=== PATIENT | male | born 1955 | race Caucasian/White ===

== ENCOUNTER 2019-03-20 19:11 | Emergency (ER) | payer SELFPAY ==
--- NOTE | 2019-03-20 19:29 | ERPHSYRPT ---
- History of Present Illness Time Seen by Provider: 03/20/19 19:20 Source: patient, police Exam Limitations: intoxication Patient Subjective Stated Complaint: pt needs cleared for detention. etoh 0.28 Triage Nursing Assessment: pt alert and oriented. answers questions approp. pt arrive with law enforcement. ambulatoryw ith steady gait noted. respirations nonlabored . skin warm and dry. speech clear. Physician History: 63 y/o white male brought into ED for medical clearance for detention. pt denies cp, soa or abd pain. pt walking normally for him. pt conversing without difficult. pts last etoh drink was at 1800 tonight. pt states he only consumed 3 etoh drinks and no other illicit drugs or rx meds. Timing/Duration: today Severity: mild Associated Symptoms: denies symptoms Allergies/Adverse Reactions: No Known Drug Allergies Allergy (Verified 03/20/19 19:23) Home Medications: No Home Meds [No Home Meds] 1 ea UD 02/08/15 [History] Hx Tetanus, Diphtheria Vaccination/Date Given: Yes Hx Influenza Vaccination/Date Given: Yes Hx Pneumococcal Vaccination/Date Given: No Immunizations Up to Date: Yes - Review of Systems Constitutional: No Symptoms Eyes: No Symptoms Ears, Nose, & Throat: No Symptoms Respiratory: No Symptoms Cardiac: No Symptoms Abdominal/Gastrointestinal: No Symptoms Genitourinary Symptoms: No Symptoms Musculoskeletal: No Symptoms Skin: No Symptoms Neurological: Other (intoxication) Psychological: No Symptoms Endocrine: No Symptoms Hematologic/Lymphatic: No Symptoms Immunological/Allergic: No Symptoms All Other Systems: Reviewed and Negative - Past Medical History Pertinent Past Medical History: No Neurological History: No Pertinent History ENT History: No Pertinent History Cardiac History: No Pertinent History Respiratory History: No Pertinent History Endocrine Medical History: No Pertinent History Musculoskeletal History: No Pertinent History GI Medical History: No Pertinent History History: No Pertinent History Psycho-Social History: No Pertinent History Male Reproductive Disorders: No Pertinent History Other Medical History: denies medical hx - Past Surgical History Past Surgical History: No Neuro Surgical History: No Pertinent History Cardiac: No Pertinent History Respiratory: No Pertinent History Gastrointestinal: No Pertinent History Genitourinary: No Pertinent History Musculoskeletal: No Pertinent History Male Surgical History: No Pertinent History - Social History Smoking Status: Current every day smoker How long have you smoked: 40 yrs Exposure to second hand smoke: No Drug Use: none Patient Lives Alone: No - Nursing Vital Signs Nursing Vital Signs: Initial Vital Signs Temperature 97.9 F 03/20/19 19:13 Pulse Rate 114 H 03/20/19 19:13 Respiratory Rate 18 03/20/19 19:13 Blood Pressure 161/102 03/20/19 19:13 O2 Sat by Pulse Oximetry 98 03/20/19 19:13 Pain Scale Pain Intensity 0 - Physical Exam General Appearance: no apparent distress, alert Eye Exam: PERRL/EOMI Ears, Nose, Throat Exam: normal ENT inspection, moist mucous membranes Neck Exam: normal inspection, non-tender, supple, full range of motion Respiratory Exam: normal breath sounds, lungs clear, airway intact, No chest tenderness, No respiratory distress Cardiovascular Exam: regular rate/rhythm, normal heart sounds, normal peripheral pulses Gastrointestinal/Abdomen Exam: soft, normal bowel sounds, No tenderness Rectal Exam: not done Back Exam: normal inspection, normal range of motion, No CVA tenderness, No vertebral tenderness Extremity Exam: normal inspection, normal range of motion, pelvis stable Neurologic Exam: alert, oriented x 3, cooperative, peace officer II-XII nml as tested, intoxicated appearance (mild), No slurred speech Skin Exam: normal color, warm Lymphatic Exam: No adenopathy SpO2 Interpretation: normal SpO2: 98 O2 Delivery: Room Air - Course Nursing assessment & vital signs reviewed: Yes - Progress Progress: unchanged Counseled pt/family regarding: diagnosis - Departure Departure Disposition: Long Term/Usp Clinical Impression: Medical clearance for incarceration Condition: Stable Critical Care Time: No Referrals: DOCTOR,NO FAMILY [Primary Care Provider] -
[2019-03-20 19:37] VITALS: BP 155/106; PULSE 104; O2SAT 95
== END 2019-03-20 19:38 | disposition home or self-care (01) ==
LOC: ED 19:11
DX: Z02.89 Encounter for other administrative examinations (principal)
CPT/HCPCS: 99283

== ENCOUNTER 2019-03-23 08:59 | Emergency (ER) | payer OTHER ==
--- NOTE | 2019-03-23 09:16 | ERPHSYRPT ---
- History of Present Illness Time Seen by Provider: 03/23/19 09:08 Source: patient, police Exam Limitations: clinical condition Physician History: 63-year-old male presenting [facility] for [facility]. The patient has been in penitentiary for 2 days. Was started on Librium twice daily yesterday and today for concern of alcohol withdrawal as he is a daily drinker prior to being incarcerated. Patient was apparently confused this hand and somewhat combative with a cellmate and was sent here for this change in behavior. Patient currently an unreliable exam as he states he was working on a porch or his grandmother's house this morning, then states he is unsure how that was happening when I tell him he was in penitentiary. Patient currently has no medical complaints. He denies any known medical history. Denies chest pain shortness of breath, believes he may have had a syncopal episode earlier but is unable to describe further, and denies focal numbness or weakness headache vision changes or other complaints at this time. PMH: Patient denies known chronic medical history Social: Patient endorses daily alcohol use and tobacco use, denies illicits Witnessed: unwitnessed Timing/Duration: today Precipitating Factors: none Context: other (Unclear) Charcter of event(s): other (Unclear) Allergies/Adverse Reactions: No Known Drug Allergies Allergy (Verified 03/23/19 09:21) Home Medications: Chlordiazepoxide HCl 25 mg [Librium 25 mg] 25 mg DAILY 03/23/19 [History] Hx Tetanus, Diphtheria Vaccination/Date Given: Yes Hx Influenza Vaccination/Date Given: Yes Hx Pneumococcal Vaccination/Date Given: No - Past Medical History Pertinent Past Medical History: No (Pt denies) Neurological History: No Pertinent History ENT History: No Pertinent History Cardiac History: No Pertinent History Respiratory History: No Pertinent History Endocrine Medical History: No Pertinent History Musculoskeletal History: No Pertinent History GI Medical History: No Pertinent History History: No Pertinent History Psycho-Social History: No Pertinent History Male Reproductive Disorders: No Pertinent History Other Medical History: denies medical hx - Past Surgical History Past Surgical History: No Neuro Surgical History: No Pertinent History Cardiac: No Pertinent History Respiratory: No Pertinent History Gastrointestinal: No Pertinent History Genitourinary: No Pertinent History Musculoskeletal: No Pertinent History Male Surgical History: No Pertinent History - Social History Smoking Status: Current every day smoker How long have you smoked: 40 yrs Exposure to second hand smoke: No Drug Use: none Patient Lives Alone: No - Review of Systems Constitutional: No Fever, No Chills Eyes: No Symptoms Ears, Nose, & Throat: No Symptoms Respiratory: No Cough, No Dyspnea Cardiac: No Chest Pain, No Edema, No Syncope Abdominal/Gastrointestinal: No Abdominal Pain, No Nausea, No Vomiting, No Diarrhea Genitourinary Symptoms: No Dysuria Musculoskeletal: No Back Pain, No Neck Pain Skin: No Rash Neurological: Other (Pt endorses possible syncopal episode ), No Dizziness, No Focal Weakness, No Sensory Changes Psychological: No Symptoms Endocrine: No Symptoms All Other Systems: Reviewed and Negative Physical Exam - Nursing Vital Signs Nursing Vital Signs: Initial Vital Signs Temperature 98.6 F 03/23/19 09:06 Pulse Rate 114 H 03/23/19 09:06 Respiratory Rate 16 03/23/19 09:06 Blood Pressure 144/95 03/23/19 09:06 O2 Sat by Pulse Oximetry 97 03/23/19 09:06 Pain Scale Pain Intensity 6 - Physical Exam General Appearance: no apparent distress, alert Eye Exam: bilateral eye: normal inspection, PERRL, EOMI, other (no nystagmus) Ears, Nose, Throat Exam: normal ENT inspection, pharynx normal, dry mucous membranes Neck Exam: normal inspection, non-tender, supple, full range of motion, No meningismus Respiratory: normal breath sounds, lungs clear, No chest tenderness, No respiratory distress Cardiovascular: capillary refill <2 sec, other (tachycardic and regular rhythm) , No murmur, No pulse deficit Gastrointestinal: soft, No tenderness, No distention, No mass Male Genitalia: other (deferred) Rectal Exam: deferred Back Exam: normal inspection, normal range of motion, No CVA tenderness, No vertebral tenderness Extremity Exam: normal inspection, normal range of motion, pelvis stable, No tenderness Mental Status: alert, cooperative, disoriented to place, No oriented x 3 sergeant of corrections Exam: normal hearing, normal speech, PERRL, tongue midline, No facial asymmetry, No facial droop, No facial weakness, No tongue deviation to L Coordination/Gait: normal finger to nose, normal gait Motor/Sensory: no motor deficit, no sensory deficit, no pronator drift Skin Exam: normal color, warm, dry, No rash Comments: mild tongue fasciculations and bilateral hand tremors - Course EKG Interpreted by Me: RATE (110), Sinus Tach, NORMAL AXIS, prolonged QT interval, NORMAL ST-T, Other (QRS slightly wide at 108, no evidence of acute ischemia) Ordered Tests: Active Orders 24 hr Category Date Time Status Accucheck STAT Care 03/23/19 09:21 Active Drier Tender Naphthalene STAT Care 03/23/19 09:22 Active EKG-ER Only STAT Care 03/23/19 09:23 Active HEAD WITHOUT CONTRAST [CT] Stat Exams 03/23/19 09:22 Completed BMP Stat Lab 03/23/19 09:20 Completed CBC W DIFF Stat Lab 03/23/19 09:20 Completed UA W/RFX UR CULTURE Stat Lab 03/23/19 09:21 Uncollected Medication Summary Discontinued Medications Generic Name Dose Route Start Last Admin Trade Name Freq PRN Reason Stop Dose Admin Chlordiazepoxide HCl 50 mg 03/23/19 10:09 03/23/19 10:16 Librium 25 Mg PO 03/23/19 10:10 50 mg STAT ONE Administration Diazepam 5 mg 03/23/19 09:18 03/23/19 09:44 Valium 10 Mg/2 Ml Syringe IV 03/23/19 09:19 5 mg STAT ONE Administration Diazepam Confirm 03/23/19 09:42 Valium 10 Mg/2 Ml Syringe Administered 03/23/19 09:43 Dose 10 mg .ROUTE .STK-MED ONE Sodium Chloride 1,000 mls @ 999 mls/hr 03/23/19 09:21 03/23/19 09:45 Sodium Chloride 0.9% 1000 Ml IV 03/23/19 10:21 999 mls/hr .Q1H1M STA Administration Sodium Chloride Confirm 03/23/19 09:42 Sodium Chloride 0.9% 1000 Ml Administered 03/23/19 09:43 Dose 1,000 mls @ ud .ROUTE .STK-MED ONE Lab/Rad Data: Laboratory Result Diagrams 03/23/19 09:20 03/23/19 09:20 Laboratory Results 03/23/19 03/23/19 Range/Units 09:20 09:20 WBC 6.9 (4.0-10.5) K/mm3 RBC 3.89 L (4.1-5.6) M/mm3 Hgb 14.0 (12.5-18.0) gm/dl Hct 40.4 L (42-50) % MCV 103.9 H (78-100) fl MCH 35.9 H (26-32) pg MCHC 34.7 (32-36) g/dl RDW 12.8 (11.5-14.0) % Plt Count 95 L (150-450) K/mm3 MPV 10.0 H (6-9.5) fl Gran % 61.6 (36.0-66.0) % Eos # (Auto) 0.04 (0-0.5) Absolute Lymphs (auto) 1.73 (1.0-4.6) Absolute Monos (auto) 0.84 (0.0-1.3) Lymphocytes % 25.2 (24.0-44.0) % Monocytes % 12.2 H (0.0-12.0) % Eosinophils % 0.6 (0.00-5.0) % Basophils % 0.4 (0.0-0.4) % Absolute Granulocytes 4.22 (1.4-6.9) Basophils # 0.03 (0-0.4) Sodium 137 (137-145) mmol/L Potassium 3.4 L (3.5-5.1) mmol/L Chloride 101 (98-107) mmol/L Carbon Dioxide 22 (22-30) mmol/L Anion Gap 16.8 H (5-15) MEQ/L BUN 16 (9-20) mg/dL Creatinine 0.86 (0.66-1.25) mg/dL Estimated GFR > 60.0 ML/MIN Glucose 105 (74-106) mg/dL Calcium 10.5 H (8.4-10.2) mg/dL Slides for Path Review - Progress Progress: improved Progress Note: 03/23/19 10:03 ppatient heart rate and blood pressure coming down somewhat and the fasciculations and tremors are improving after Valium. Unremarkable laboratory evaluation and head CT. Urine night obtained. Patient was likely suffering from acute alcohol withdrawal symptoms at this time and is underdosed on his penitentiary dose of Librium. 03/23/19 10:42 at 1043 the patient was reevaluated. He is no longer hypertensive, he remains very mildly tachycardic. He is alert and oriented x3 at this point and feels he understands the plan of the day, which is to be discharged back to penitentiary with instructions for the penitentiary to more aggressively treat his alcohol withdrawal with Librium. He or has been written for them to follow if needed. Return precautions discussed including new or concerning symptoms, worsening delirium, unstable vital signs, or obvious and pending delirium tremens or seizures. At this point there is no evidence of old tear medical emergency such as electrolyte disturbance, intracranial hemorrhage or infarct, dysrhythmia et cetera. Patient is suffering from acute alcohol withdrawal and is stable for discharge back to the [facility] the penitentiary. - Departure Departure Disposition: Half-Way/Long-Term Clinical Impression: Medical clearance for incarceration, Alcohol withdrawal Condition: Stable Critical Care Time: No Referrals: DOCTOR,NO FAMILY [Primary Care Provider] - Additional Instructions: the patient will likely require and more aggressive taper of Librium secondary to alcohol withdrawal symptoms Try administering 25 mg of Librium every 6 hours, 4 times and daily for the next 24 hours followed by 3 times daily the next day followed by 3 times a day dosing the third day and so on. Patient will likely suffer in acute alcohol withdrawal symptoms throughout the next 2-3 days and if his symptoms are uncontrolled common new or concerning please have him return to the emergency department. He received 5 mg of IV Valium in the emergency department today as well as a 50 mg Librium load discharge at approximately 10:10 AM.
[2019-03-23] MEDS ORDERED: VALIUM 10 MG/2 ML SYRINGE IV ONE (09:18)
[2019-03-23 09:21] VITALS: BP 144/95
[2019-03-23] MEDS ORDERED: Sodium Chloride 0.9% 1000 ML 1,000 ML IV STA (09:21)
[2019-03-23 09:38] LABS: Absolute Neutrophil Ct (ANC) 4.22 (1.4-6.9); BASOPHIL % 0.4 % (0.0-0.4); Basophil (Absolute #) 0.03 (0-0.4); Eosinophil % 0.6 % (0.00-5.0); Eosinophil (Absolute #) 0.04 (0-0.5); Hematocrit 40.4 % (42-50); Lymphocyte (Absolute #) 1.73 (1.0-4.6); Lymphocytes % 25.2 % (24.0-44.0); Mean Cell Volume 103.9 fl (78-100); Mean Corpuscular Hgb Concent. 34.7 g/dl (32-36); Monocyte (Absolute #) 0.84 (0.0-1.3); Monocytes % 12.2 % (0.0-12.0); Neutrophil % 61.6 % (36.0-66.0); Platelet Count 95 K/mm3 (150-450); Red Blood Count 3.89 M/mm3 (4.1-5.6); Red Cell Distribution Width 12.8 % (11.5-14.0); White Blood Count 6.9 K/mm3 (4.0-10.5)
[2019-03-23] MEDS ORDERED: Sodium Chloride 0.9% 1000 ML 1,000 ML ONE (09:42)
[2019-03-23] MEDS ORDERED: VALIUM 10 MG/2 ML SYRINGE ONE (09:42)
[2019-03-23 09:50] LABS: Mean Corpuscular Hemoglobin 35.9 pg (26-32)
[2019-03-23 09:51] LABS: ANION GAP 16.8 MEQ/L (5-15); BLOOD UREA NITROGEN 16 mg/dL (9-20); CHLORIDE 101 mmol/L (98-107); Calcium 10.5 mg/dL (8.4-10.2); Carbon Dioxide 22 mmol/L (22-30); Creatinine 1 0.86 mg/dL (0.66-1.25); Glucose 105 mg/dL (74-106); Potassium 3.4 mmol/L (3.5-5.1); SODIUM 137 mmol/L (137-145)
[2019-03-23 09:54] VITALS: PULSE 105; O2SAT 95
--- NOTE | 2019-03-23 09:55 | XRAY ---
Indication: Altered mental status. Multiple contiguous axial images obtained through the head without contrast. Comparison: None Images through the base of the brain slightly degraded by motion artifact. Age-appropriate global atrophy and mild/moderate periventricular degenerative micro-ischemia bilaterally. No acute intracranial hemorrhage, abnormal extra-axial fluid collection, or mass effect. Fourth ventricle is midline without hydrocephalus. Bony calvarium intact. Visualized paranasal sinuses and mastoid air cells are grossly clear. Impression: Minimal motion artifact. Grossly nonacute senile brain. CTDI 62.81
[2019-03-23] MEDS ORDERED: LIBRIUM 25 MG PO ONE (10:09)
== END 2019-03-23 11:07 | disposition home or self-care (01) ==
LOC: ED 08:59
DX: Z02.89 Encounter for other administrative examinations (principal); F10.239 Alcohol dependence with withdrawal, unspecified; F15.90 Other stimulant use, unspecified, uncomplicated
CPT/HCPCS: 36415; 70450; 80048; 82962; 85025; 93005; 93041; 96374; 99284; J3360; A9270-GY

== ENCOUNTER 2019-03-23 20:25 | Emergency (ER) | payer OTHER ==
[2019-03-23] MEDS ORDERED: VALIUM 10 MG/2 ML SYRINGE IV ONE ×3 (20:51→23:47)
[2019-03-23] MEDS ORDERED: VALIUM 10 MG/2 ML SYRINGE IM PRN (20:55)
--- NOTE | 2019-03-23 20:55 | ERPHSYRPT ---
- History of Present Illness Source: patient, police Exam Limitations: no limitations Patient Subjective Stated Complaint: pt having alcohol withdrawal, pt confused Triage Nursing Assessment: pt arrived via sherrif, wheeled in via wheelchair, c/ o confusion and continuing to withdraw from alcohol. Pt alert to name and date and president, but thinks he is in [facility]. Pt also states, "I think this is a snickers bar and I want to take a bite out of it, referring to his pulse ox on this finger". Lungs clear, heart tones reg, abd soft with active bs x4 quad, nontender. no edema noted. Physician History: 63-year-old male on his second visit of the day from [facility] for alcohol withdrawal syndrome. Patient had his last drink 3 days ago has been in [facility] for 2 days. Was here this a.m. after being given very low dose Librium for the last 2 days as he was confused agitated and aggressive with his cell mate. He received IV Valium,, a load of Librium, and was discharged with instructions back to [facility] to take a more aggressive Librium regimen for the next several days. He was returned by the [facility] tonight for confusion. At the bedside the patient is alert and oriented. He does not seem confused. He has no medical complaints. The scuba diving instructor is unsure why he was sent back here. PMH: Patient endorses a history of hypertension untreated Social: Patient endorses daily alcohol Allergies/Adverse Reactions: No Known Drug Allergies Allergy (Verified 03/23/19 09:21) Home Medications: Chlordiazepoxide HCl 25 mg [Librium 25 mg] 50 mg PO DAILY 03/23/19 [ History] Hx Tetanus, Diphtheria Vaccination/Date Given: Yes Hx Influenza Vaccination/Date Given: Yes Hx Pneumococcal Vaccination/Date Given: No - Review of Systems Constitutional: No Fever, No Chills Eyes: No Symptoms Ears, Nose, & Throat: No Symptoms Respiratory: No Cough, No Dyspnea Cardiac: No Chest Pain, No Edema, No Syncope Abdominal/Gastrointestinal: No Abdominal Pain, No Nausea, No Vomiting, No Diarrhea Genitourinary Symptoms: No Dysuria Musculoskeletal: No Back Pain, No Neck Pain Skin: No Rash Neurological: No Dizziness, No Focal Weakness, No Sensory Changes Psychological: No Symptoms Endocrine: No Symptoms All Other Systems: Reviewed and Negative - Past Medical History Pertinent Past Medical History: No (Pt denies) Neurological History: No Pertinent History ENT History: No Pertinent History Cardiac History: No Pertinent History Respiratory History: No Pertinent History Endocrine Medical History: No Pertinent History Musculoskeletal History: No Pertinent History GI Medical History: No Pertinent History History: No Pertinent History Psycho-Social History: No Pertinent History Male Reproductive Disorders: No Pertinent History Other Medical History: denies medical hx - Past Surgical History Past Surgical History: Yes Neuro Surgical History: No Pertinent History Cardiac: No Pertinent History Respiratory: No Pertinent History Gastrointestinal: No Pertinent History Genitourinary: No Pertinent History Musculoskeletal: Orthopedic Surgery Male Surgical History: No Pertinent History Other Surgical History: rt shoulder surgery - Social History Smoking Status: Current every day smoker How long have you smoked: 40 yrs Exposure to second hand smoke: No Drug Use: none Patient Lives Alone: No - Nursing Vital Signs Nursing Vital Signs: Initial Vital Signs Temperature 98.4 F 03/23/19 20:30 Pulse Rate 115 H 03/23/19 20:30 Respiratory Rate 18 03/23/19 20:30 Blood Pressure 164/111 03/23/19 20:30 O2 Sat by Pulse Oximetry 98 03/23/19 20:30 Pain Scale Pain Intensity 9 - Physical Exam General Appearance: no apparent distress, alert Eye Exam: PERRL/EOMI, eyes nml inspection Ears, Nose, Throat Exam: normal ENT inspection, TMs normal, pharynx normal, moist mucous membranes Neck Exam: normal inspection, non-tender, supple, full range of motion Respiratory Exam: normal breath sounds, lungs clear, No respiratory distress Cardiovascular Exam: normal heart sounds, normal peripheral pulses, other ( tachycardic and regular rhythm ) Gastrointestinal/Abdomen Exam: soft, normal bowel sounds, No tenderness, No mass Back Exam: normal inspection, normal range of motion, No CVA tenderness, No vertebral tenderness Extremity Exam: normal inspection, normal range of motion, pelvis stable Neurologic Exam: alert, oriented x 3, cooperative, normal mood/affect, nml cerebellar function, nml station & gait, sensation nml, other (no fasciculations , minimal hand tremors, no nystagmus ), No motor deficits, No sensory deficit, No disoriented Skin Exam: normal color, warm, dry, No rash Lymphatic Exam: No adenopathy SpO2: 98 Ordered Tests: Active Orders 24 hr Category Date Time Status ACCUCHECK [Accucheck] STAT Care 03/23/19 23:20 Active EKG-ER Only STAT Care 03/23/19 23:09 Active IV Insertion STAT Care 03/23/19 22:38 Active Medication Summary Discontinued Medications Generic Name Dose Route Start Last Admin Trade Name Freq PRN Reason Stop Dose Admin Chlordiazepoxide HCl 50 mg 03/23/19 21:55 03/23/19 22:07 Librium 25 Mg PO 03/23/19 21:56 50 mg STAT ONE Administration Dextrose 25 ml 03/23/19 23:19 03/23/19 23:29 D50w 50 Ml Abboject IV 03/23/19 23:20 25 ml STAT ONE Administration Dextrose 25 ml 03/23/19 23:21 03/23/19 23:30 D50w 50 Ml Abboject IV 03/23/19 23:22 Not Given STAT ONE Diazepam 5 mg 03/23/19 20:51 03/23/19 20:54 Valium 10 Mg/2 Ml Syringe IV 03/23/19 20:52 Not Given STAT ONE Diazepam 10 mg 03/23/19 20:55 03/23/19 21:03 Valium 10 Mg/2 Ml Syringe IM 04/22/19 20:54 10 mg PRN PRN Administration SEIZURES Diazepam 10 mg 03/23/19 22:29 03/23/19 22:40 Valium 10 Mg/2 Ml Syringe IV 03/23/19 22:30 10 mg STAT ONE Administration Diazepam 5 mg 03/23/19 23:47 03/23/19 23:54 Valium 10 Mg/2 Ml Syringe IV 03/23/19 23:48 5 mg STAT ONE Administration Diazepam Confirm 03/23/19 21:01 Valium 10 Mg/2 Ml Syringe Administered 03/23/19 21:02 Dose 10 mg .ROUTE .STK-MED ONE Diazepam Confirm 03/23/19 22:38 Valium 10 Mg/2 Ml Syringe Administered 03/23/19 22:39 Dose 10 mg .ROUTE .STK-MED ONE Diazepam Confirm 03/23/19 23:50 Valium 10 Mg/2 Ml Syringe Administered 03/23/19 23:51 Dose 10 mg .ROUTE .STK-MED ONE Sodium Chloride 1,000 mls @ 999 mls/hr 03/23/19 23:08 03/23/19 23:56 Sodium Chloride 0.9% 1000 Ml IV 03/24/19 00:08 Infused .Q1H1M STA Infusion Sodium Chloride Confirm 03/23/19 23:11 Sodium Chloride 0.9% 1000 Ml Administered 03/23/19 23:12 Dose 1,000 mls @ ud .ROUTE .STK-MED ONE Multivitamins/Minerals 10 ml/ 1,000 mls @ 100 mls/hr 03/23/19 23:30 Thiamine HCl 100 mg/ Folic IV 04/22/19 23:29 Acid 1 mg/ Sodium Chloride .Q10H BRYAN Dextrose Confirm 03/23/19 23:24 Dextrose 10% 250 Ml Administered 03/23/19 23:25 Dose 250 mls @ ud IV .STK-MED ONE Thiamine HCl Confirm 03/23/19 23:24 Thiamine 200 Mg/2 Ml Administered 03/23/19 23:25 Dose 200 mg .ROUTE .STK-MED ONE - Progress Progress: re-examined Progress Note: during the short time the patient was in the emergency department he significantly decompensated and became more confused and delirious. He was unable to ambulate without significant assistance. He did not recognize his at one point. Despite aggressive benzos he remained tachycardic and hypotensive. Spoke to Dr. Ivey at outside hospital who accepts the patient for transfer to their emergency department for [place] for alcohol withdrawal syndrome on its way to delirium tremens. 03/24/19 02:01 - Departure Departure Disposition: Observation, Transfer Clinical Impression: Alcohol withdrawal Qualifiers: Complication of substance-induced condition: uncomplicated Qualified Code(s): F10.230 - Alcohol dependence with withdrawal, uncomplicated Condition: Fair Critical Care Time: No Referrals: DOCTOR,NO FAMILY [Primary Care Provider] - Instructions: Alcohol Abuse and Alcoholism (DC) Prescriptions: Chlordiazepoxide HCl 25 mg [Librium 25 mg] 25 mg PO TID 7 Days #21 capsule
[2019-03-23] MEDS ORDERED: VALIUM 10 MG/2 ML SYRINGE ONE ×3 (21:01→23:50)
[2019-03-23] MEDS ORDERED: LIBRIUM 25 MG PO ONE (21:55)
[2019-03-23 22:37] VITALS: O2SAT 98
[2019-03-23] MEDS ORDERED: Sodium Chloride 0.9% 1000 ML 1,000 ML IV STA (23:08)
[2019-03-23] MEDS ORDERED: Sodium Chloride 0.9% 1000 ML 1,000 ML ONE (23:11)
[2019-03-23] MEDS ORDERED: D50W 50 ml Abboject IV ONE ×2 (23:19→23:21)
[2019-03-23] MEDS ORDERED: THIAMINE 200 MG/2 ML ONE (23:24)
[2019-03-23] MEDS ORDERED: DEXTROSE 10% 250 ML 250 ML IV ONE (23:24)
[2019-03-23] MEDS ORDERED: Vitamins For Infusion 10 ML INJECTION*** 10 ML, THIAMINE 200 MG/2 ML*** 100 MG, FOLNATE... IV SCH ×4 (23:30)
[2019-03-23 23:33] VITALS: BP 130/90; PULSE 90
== END 2019-03-23 23:57 | disposition short-term general hospital (02) ==
LOC: ED 20:25
DX: F10.239 Alcohol dependence with withdrawal, unspecified (principal)
CPT/HCPCS: 36000; 82962; 93005; 96372; 96374; 96375; 96376; 99285; J3360; A9270-GY